=== PATIENT | female | born 1985 | race Caucasian/White ===

== ENCOUNTER 2022-04-10 11:38 | Emergency (ER) | payer OTHER, SELFPAY ==
[2022-04-10 12:03] VITALS: BP 113/84; PULSE 96; RESP 16; TEMP 36.4; O2SAT 97; BMI 34.8
[2022-04-10 13:02] VITALS: TEMP 36.7; BMI 34.8
--- NOTE | 2022-04-10 13:39 | ED_ITS ---
HPI - Eye Problem General Date Seen: 04/10/22 Chief complaint: Eye Problems Stated complaint: Inflamed left eye Time Seen by Provider: 04/10/22 13:02 Source: patient Mode of arrival: ambulatory Limitations: no limitations History of Present Illness HPI Narrative: 28-year-old female presents here with a swelling on her left upper eyelid, she has had this for not couple days, it does not impact her vision, does cause her some grief, but no problems with vision. She is trying some [id number] ointment did she got from [employer], she is unsure exactly what is in it. There is no history of injury, visual disturbance, foreign body sensation, earliest not of significant issue with pain or discharge. chief complaint: other Onset (ago): day(s) Onset description: gradual Duration: constant Location: left eye Treatments Prior to Arrival: OTC eye drops Related Data Patient tetanus UTD: Yes Home Medications Medication Instructions Recorded Confirmed Delta 8 04/10/22 GSK66 04/10/22 hydroxyzine HCl 10 mg tablet 10 mg PO Q8H PRN 04/10/22 04/10/22 tizanidine 4 mg capsule 4 mg PO BID 04/10/22 04/10/22 Allergies Allergy/AdvReac Type Severity Reaction Status Date / Time Latex, Natural Rubber Allergy Severe Anaphylaxis Verified 04/10/22 12:09 shellfish derived Allergy Severe Anaphylaxis Verified 04/10/22 12:09 jackfruit Allergy Severe Anaphylaxis Uncoded 04/10/22 12:09 psychiatric medications Allergy Unknown Uncoded 04/10/22 12:09 Review of Systems Status of ROS: Reports: 6 or more systems reviewed and unremarkable except as noted in History and below PFSH PFS Social History Smoking Status: Current every day smoker Do you use any of these nicotine containing products: Vaping Products Second hand tobacco smoke exposure: No How often do you have a drink containing alcohol: 4 or more times a week How many standard drinks containing alcohol do you have on a typical day: 3 or 4 How often do you have six or more drinks on one occasion: Monthly AUDIT-C Alcohol total score: 7 Non-prescribed substance use: marijuana (any form), opiods/painkillers and club/[employer] drugs service: Yes Exam Narrative: Exam Narrative: Patient is seen and assessed her left lid shows consistency for a chalazion in the left upper eyelid. No scleral icterus or redness is noted, share extraocular muscles are normal, her pupils equal round reactive to light, there is no evidence of any preauricular nodes. Const: Vital Signs, click to edit/add: Vital Signs - 24 hr 04/10/22 12:03 04/10/22 13:02 Temperature 97.6 F 98.0 F Pulse Rate [Pulse Oximeter] 96 Respiratory Rate 16 Blood Pressure [Ri ght Upper Arm] 113/84 Pulse Oximetry 97 Oxygen Delivery Me thod Room Air Documenting provider has reviewed patient's vital signs: yes Common normals: no apparent distress Course Vital Signs Vital signs: Initial Vital Signs Temperature 97.6 F 04/10/22 12:03 Temperature Source Temporal Artery Scan 04/10/22 12:03 Pulse Rate 96 04/10/22 12:03 Respiratory Rate 16 04/10/22 12:03 Blood Pressure 113/84 04/10/22 12:03 Blood Pressure Mean 93 04/10/22 12:03 Blood Pressure Position Sitting 04/10/22 12:03 Pulse Oximetry 97 04/10/22 12:03 Oxygen Delivery Method 04/10/22 12:03 Vital Signs Temperature 97.6 F 04/10/22 12:03 Pulse Rate 96 04/10/22 12:03 Respiratory Rate 16 04/10/22 12:03 Blood Pressure 113/84 04/10/22 12:03 Pulse Oximetry 97 04/10/22 12:03 Oxygen Delivery Method 04/10/22 12:03 Temperature 98.0 F 04/10/22 13:02 Pulse Rate 96 04/10/22 12:03 Respiratory Rate 16 04/10/22 12:03 Blood Pressure 113/84 04/10/22 12:03 Pulse Oximetry 97 04/10/22 12:03 Oxygen Delivery Method 04/10/22 12:03 Discharge Plan Discharge Clinical Impression: Chalazion left upper eyelid Patient Disposition: Home, Self-Care Condition: Stable Instructions: Chalazion (ED) Additional Instructions: Home rest, follow-up with Ophthalmology as needed, eyedrops for the next 5 days, warm compresses, Prescriptions: No Action Delta 8 [id number] Rx Instructions: Sleep aid gummy from [employer] hydroxyzine HCl 10 mg tablet 10 mg PO Q8H PRN tizanidine 4 mg capsule 4 mg PO BID Follow Up/Referrals: Provider,Not a Local [Primary Care Provider] - Stand Alone Forms: [facility] Info Instructions
== END 2022-04-10 13:59 | disposition home or self-care (01) ==
PROVIDERS: Emergency Provider Family Medicine
DX: H00.14 Chalazion left upper eyelid (principal)
CPT/HCPCS: 99281; 99282

== ENCOUNTER 2022-04-14 13:56 | Outpatient (CLI) | payer OTHER, SELFPAY | END 2022-04-14 13:57 | disposition home or self-care (01) | LOC: AMB 04-29 11:37 | PROVIDERS: Visit Provider Emergency Medicine Emergency Medical Services | DX: R07.89 Other chest pain (principal) | CPT/HCPCS: A0998 ==